=== PATIENT | female | born 1990 | race Caucasian/White ===

== ENCOUNTER 2017-12-30 15:04 | Emergency (ER) | payer OTHER ==
--- NOTE | 2017-12-30 16:04 | XRAY Report ---
Reason: twisted left foot, unable to bear weight Procedure Date: 12/30/2017 Accession Number: [id number] / [id number] Procedure: XR - Foot 3 View LT CPT Code: FULL RESULT: EXAM: LEFT FOOT RADIOGRAPHY EXAM DATE: 12/30/2017 03:43 PM. CLINICAL HISTORY: Patient stepped on an object today, diffuse foot pain. COMPARISON: None. TECHNIQUE: 3 views. FINDINGS: Bones: Sesamoid bone subjacent to the medial aspect first metatarsal head has 2 components. Joints: Normal. No subluxations. Soft Tissues: Marked forefoot edema along the plantar aspect. No radiopaque foreign body. IMPRESSION: 1. 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 Correlate clinically to determine significance. 2. Marked plantar forefoot edema. RADIA
--- NOTE | 2017-12-30 18:58 | ED Physician Documentation ---
History of Present Illness - Stated complaint Stated Complaint: LT FT INJ - Chief complaint Chief Complaint: Ext Problem - Additonal information Additional information: hx from pt 27 y.o f doubts preg stepped on car with right foot and twisted L foot pain to medial distal foot no other sig injury Review of Systems : denies: Now [facility] Musculoskeletal: reports: Pain with weight bearing PD PAST MEDICAL HISTORY - Past Medical History Past Medical History: No - Past Surgical History Past Surgical History: No - Allergies Allergies/Adverse Reactions: Allergies Allergy/AdvReac Type Severity Reaction Status Date / Time No Known Drug Allergies Allergy Verified 12/30/17 15:15 - Social History Does the pt smoke?: No Smoking Status: Never smoker Does the pt drink ETOH?: No Does the pt have substance abuse?: No - Immunizations Immunizations are current?: Yes - POLST Patient has POLST: No PD ED PE NORMAL - Vitals Vital signs reviewed: Yes - Extremities Extremities: Other (+ swelling distal foot, TTP over duitsal 1st and 2nd MT dorsal more than plantar, no gross def, no open wound no ankle pain, MSV intact) Results - Vitals Vitals: Vital Signs - 24 hr 12/30/17 15:07 Temperature 36 C L Heart Rate 90 Respiratory 16 Rate Blood Pressure 129/91 H O2 Saturation 100 Oxygen O2 Source Room air - Rads (name of study) foot Radiology: See rad report (possible sesmoid fx, STS) PD MEDICAL DECISION MAKING - Sepsis Event Vital Signs: Vital Signs - 24 hr 12/30/17 15:07 Temperature 36 C L Heart Rate 90 Respiratory 16 Rate Blood Pressure 129/91 H O2 Saturation 100 Oxygen O2 Source Room air Departure - Departure Disposition: 01 Home, Self Care Clinical Impression: Closed fracture of sesamoid bone of foot Qualifiers: Encounter type: initial encounter Laterality: left Qualified Code(s): S92.812A - Other fracture of left foot, initial encounter for closed fracture Condition: Good Instructions: ED Fx Foot Follow-Up: [facility] [Provider Group] Comments: The xray shows you may have fractured the small round bone under the forefoot near your big toe - this is not a weight bearing bone and is meant to help the tendons function - but it is very painful when stepped on It shoild heal well if you stay off it. Recommend CHARLENE wrap ice and elevation for the swelling. Motrin and tylenol for the pain Crutches or a knee scooter to avoid weight bearing If not feeling better in two weeks, continue to stay off the foot and schedule with orthopedics (you just need to call the office)
[2017-12-30 19:16] VITALS: BP 121/58
[2017-12-30] MEDS ORDERED: ACETAMINOPHEN 325 MG TABLET PO STA (19:21)
[2017-12-30] MEDS ORDERED: IBUPROFEN 400 MG TABLET PO STA (19:21)
== END 2017-12-30 19:19 | disposition home or self-care (01) ==
LOC: ED 15:04
DX: S92.812A Other fracture of left foot, initial encounter for closed fracture (principal); W26.8XXA Contact with other sharp object(s), not elsewhere classified, initial encounter
CPT/HCPCS: 99282; 99283